=== PATIENT | male | born 1965 | race Caucasian/White ===

== ENCOUNTER 2018-06-20 11:29 | Emergency (ER) | payer OTHER, MEDICAID ==
[~2018-06-20] VITALS: Ht 177.8 cm; Wt 63.5 kg
[2018-06-20 11:39] VITALS: Ht 177.8 cm; Wt 63.5 kg
[2018-06-20 12:25] VITALS: BP 145/75
== END 2018-06-20 13:08 | disposition home or self-care (01) ==
LOC: ED 11:29
DX: S62.640A Nondisplaced fracture of proximal phalanx of right index finger, initial encounter for closed fracture (principal); E11.22 Type 2 diabetes mellitus with diabetic chronic kidney disease; N18.9 Chronic kidney disease, unspecified; W18.09XA Striking against other object with subsequent fall, initial encounter; Y93.89 Activity, other specified; Y92.89 Other specified places as the place of occurrence of the external cause; Y99.8 Other external cause status

== ENCOUNTER 2018-08-12 15:20 | Emergency (ER) | payer OTHER, MEDICAID ==
[~2018-08-12] VITALS: Ht 177.8 cm; Wt 65.3 kg
[2018-08-12 15:31] VITALS: Ht 177.8 cm; Wt 65.3 kg
[2018-08-12 16:53] LABS: BASOPHIL % 0.7 % (0-2); PLATELET COUNT 233 x10^3mcL (130-400); RED CELL DISTRIBUTION WIDTH 13.9 % (11.5-14.5)
[2018-08-12 17:11] LABS: ALBUMIN 3.8 g/dL (3.4-5.0); BILIRUBIN TOTAL 0.72 mg/dL (0.20-1.00); CALCIUM 8.9 mg/dL (8.5-10.1); CARBON DIOXIDE 31.6 mmol/L (21-32); CREATININE SERUM 3.7 mg/dL (0.7-1.3); POTASSIUM SERUM 4.3 mmol/L (3.5-5.1); TOTAL PROTEIN, SERUM 7.5 g/dL (6.4-8.2)
[2018-08-12 19:03] VITALS: BP 110/55
== END 2018-08-12 19:03 | disposition home or self-care (01) ==
LOC: ED 15:20
PROVIDERS: Emergency Medicine
DX: E11.22 Type 2 diabetes mellitus with diabetic chronic kidney disease (principal); N18.9 Chronic kidney disease, unspecified
CPT/HCPCS: 36415; 82962; 87804; Q0092

== ENCOUNTER 2019-01-17 15:41 | Emergency (ER) | payer OTHER, MEDICAID ==
[~2019-01-17] VITALS: Ht 177.8 cm; Wt 68.0 kg
[2019-01-17 18:23] VITALS: BP 126/62
== END 2019-01-17 18:23 | disposition home or self-care (01) ==
LOC: ED 15:41
DX: S52.021A Displaced fracture of olecranon process without intraarticular extension of right ulna, initial encounter for closed fracture (principal); Y99.8 Other external cause status; E11.22 Type 2 diabetes mellitus with diabetic chronic kidney disease; N18.6 End stage renal disease; Z99.2 Dependence on renal dialysis; W18.30XA Fall on same level, unspecified, initial encounter; Y93.89 Activity, other specified; Y92.89 Other specified places as the place of occurrence of the external cause

== ENCOUNTER 2019-06-02 16:36 | Emergency (ER) | payer OTHER, MEDICAID ==
[~2019-06-02] VITALS: Ht 177.8 cm; Wt 61.7 kg
[2019-06-02 16:40] VITALS: Ht 177.8 cm; Wt 61.7 kg
[2019-06-02 17:50] VITALS: BP 105/69
== END 2019-06-02 17:40 | disposition home or self-care (01) ==
LOC: ED 16:36
DX: L03.116 Cellulitis of left lower limb (principal); S81.802D Unspecified open wound, left lower leg, subsequent encounter; E11.42 Type 2 diabetes mellitus with diabetic polyneuropathy; E11.22 Type 2 diabetes mellitus with diabetic chronic kidney disease; N18.9 Chronic kidney disease, unspecified; Z89.422 Acquired absence of other left toe(s); Z89.421 Acquired absence of other right toe(s); X58.XXXD Exposure to other specified factors, subsequent encounter

== ENCOUNTER 2019-07-05 09:09 | Emergency (ER) | payer OTHER, MEDICAID ==
[~2019-07-05] VITALS: Ht 177.8 cm; Wt 68.0 kg
[2019-07-05 09:25] VITALS: Ht 177.8 cm; Wt 68.0 kg
[2019-07-05 10:54] LABS: BASOPHIL % 1.2 % (0-2); PLATELET COUNT 234 x10^3mcL (130-400); RED CELL DISTRIBUTION WIDTH 13.9 % (11.5-14.5)
[2019-07-05 11:40] LABS: BILIRUBIN TOTAL 0.59 mg/dL (0.20-1.00); CARBON DIOXIDE 31.7 mmol/L (21-32)
[2019-07-05 11:52] LABS: ALBUMIN 2.8 g/dL (3.4-5.0); TOTAL PROTEIN, SERUM 5.7 g/dL (6.4-8.2)
[2019-07-05 11:53] LABS: CREATININE SERUM 7.7 mg/dL (0.7-1.3)
[2019-07-05 12:45] VITALS: BP 105/87
== END 2019-07-05 12:45 | disposition home or self-care (01) ==
LOC: ED 09:09
PROVIDERS: Emergency Medicine
DX: H54.7 Unspecified visual loss (principal); R22.41 Localized swelling, mass and lump, right lower limb; E11.22 Type 2 diabetes mellitus with diabetic chronic kidney disease; N18.9 Chronic kidney disease, unspecified; Z98.890 Other specified postprocedural states
CPT/HCPCS: 36415; 82962; Q0092

== ENCOUNTER 2019-09-25 16:49 | Emergency (ER) | payer OTHER, MEDICAID ==
[~2019-09-25] VITALS: Ht 177.8 cm; Wt 67.6 kg
[2019-09-25 16:51] VITALS: Ht 177.8 cm; Wt 67.6 kg
[2019-09-25 18:04] VITALS: BP 136/71
== END 2019-09-25 18:02 | disposition home or self-care (01) ==
LOC: ED 16:49
DX: H73.892 Other specified disorders of tympanic membrane, left ear (principal); H61.21 Impacted cerumen, right ear; E11.22 Type 2 diabetes mellitus with diabetic chronic kidney disease; N18.6 End stage renal disease; I25.10 Atherosclerotic heart disease of native coronary artery without angina pectoris; I73.9 Peripheral vascular disease, unspecified; Z99.2 Dependence on renal dialysis; Z98.61 Coronary angioplasty status; Z89.432 Acquired absence of left foot

== ENCOUNTER → 2019-11-26 | Outpatient (CLI) | payer OTHER, MEDICAID | END | disposition home or self-care (01) | LOC: US 10:06 | PROC: BW40ZZZ Ultrasonography of Abdomen (ICD-10-PCS; principal; 2019-11-26) | DX: R74.0 Nonspecific elevation of levels of transaminase and lactic acid dehydrogenase [LDH] (principal) ==

== ENCOUNTER 2020-05-27 00:55 | Emergency (ER) | payer OTHER, MEDICAID ==
[~2020-05-27] VITALS: Ht 177.8 cm; Wt 79.4 kg
[2020-05-27 00:57] VITALS: Ht 177.8 cm; Wt 79.4 kg
[2020-05-27 02:03] VITALS: BP 116/62
== END 2020-05-27 01:40 | disposition short-term general hospital (02) ==
LOC: ED 00:55
DX: S22.42XA Multiple fractures of ribs, left side, initial encounter for closed fracture (principal); S01.01XA Laceration without foreign body of scalp, initial encounter; S50.312A Abrasion of left elbow, initial encounter; S50.311A Abrasion of right elbow, initial encounter; I95.9 Hypotension, unspecified; R10.812 Left upper quadrant abdominal tenderness; E11.22 Type 2 diabetes mellitus with diabetic chronic kidney disease; N18.6 End stage renal disease; M25.512 Pain in left shoulder; Z89.422 Acquired absence of other left toe(s); Z99.2 Dependence on renal dialysis; V68.6XXA Passenger in heavy transport vehicle injured in noncollision transport accident in traffic accident, initial encounter; Y93.89 Activity, other specified; Y92.488 Other paved roadways as the place of occurrence of the external cause; Y99.8 Other external cause status
CPT/HCPCS: 90715; Q0092

== ENCOUNTER 2020-08-27 19:17 | Emergency (ER) | payer OTHER, MEDICAID ==
[~2020-08-27] VITALS: Ht 170.2 cm; Wt 54.4 kg
[2020-08-27 19:34] VITALS: Ht 170.2 cm; Wt 54.4 kg
[2020-08-27 20:25] LABS: BASOPHIL % 1.3 % (0-2); PLATELET COUNT 283 x10^3mcL (130-400)
[2020-08-27 20:27] LABS: RED CELL DISTRIBUTION WIDTH 15.1 % (11.5-14.5)
[2020-08-27 20:47] LABS: ALKALINE PHOSPHATASE 97 U/L (46-116); ALT/SGPT 48 U/L (16-63); AST/SGOT 34 U/L (15-37); CALCIUM 8.9 mg/dL (8.5-10.1); CARBON DIOXIDE 24.2 mmol/L (21-32); CHLORIDE SERUM 96 mmol/L (98-107); GLUCOSE SERUM 114 mg/dL (74-106); POTASSIUM SERUM 3.3 mmol/L (3.5-5.1); SODIUM SERUM 134 mmol/L (136-145); TOTAL PROTEIN, SERUM 6.4 g/dL (6.4-8.2)
[2020-08-27 20:49] LABS: ALBUMIN 3.1 g/dL (3.4-5.0); GFR1 8 mL/min
[2020-08-27 20:50] LABS: CREATININE SERUM 7.6 mg/dL (0.7-1.3)
[2020-08-27 20:51] VITALS: BP 108/41
== END 2020-08-27 21:05 | disposition short-term general hospital (02) ==
LOC: ED 19:17
PROVIDERS: Emergency Medicine
DX: I60.9 Nontraumatic subarachnoid hemorrhage, unspecified (principal); J96.02 Acute respiratory failure with hypercapnia; E11.22 Type 2 diabetes mellitus with diabetic chronic kidney disease; N18.6 End stage renal disease; Z99.2 Dependence on renal dialysis; Z89.432 Acquired absence of left foot
CPT/HCPCS: 82962; G0480; J1953; J3490